=== PATIENT | female | born 1995 | race Caucasian/White ===

== ENCOUNTER 2017-05-16 00:14 | Emergency (ER) | payer SELFPAY ==
[2017-05-16 00:57] LABS: Hematocrit 42.1 % (36.0-47.0); Mean Platelet Volume 6.3 fL (7.4-10.4); Neutrophil 39 % (42-75); Red Blood Cell (RBC) Count 4.33 mill/uL (4.20-5.40); White Blood Cell (WBC) Count 7.3 thou/uL (4.8-10.8)
[2017-05-16 01:01] LABS: ALT (SGPT) 14 U/L (8-55); AST (SGOT) 33 U/L (5-34); Acetaminophen Less than 6.0 mcg/mL (10.0-30.0); Alkaline Phosphatase 55 U/L (40-150); Anion Gap 17 mmol/L (10-20); BUN (Urea Nitrogen) 9 mg/dL (7.0-18.7); Bilirubin, Total 0.3 mg/dL (0.2-1.2); Calc. Creatinine Clearance 0 mL/min (70-130); Calcium 9.2 mg/dL (7.8-10.44); Carbon Dioxide 19 mmol/L (22-29); Chloride 104 mmol/L (98-107); Estimated GFR-MDRD 68; Globulin 3.3 g/dL (2.4-3.5); Protein, Total 7.7 g/dL (6.0-8.3); Salicylate Less than 8.0 mg/dL (15.0-30.0)
[2017-05-16 01:02] LABS: Bilirubin Negative (Negative); Blood, Urine Negative (Negative); Glucose, Urine (Dipstick) Negative (Negative); Ketone, Urine Negative (Negative); Nitrite Negative (Negative); Protein, Urine (Dipstick) Trace mg/dL (Neg-Trace); Urobilinogen 0.2 mg/dL (0.2-1.0)
[2017-05-16 01:10] LABS: Amphetamine Not Detected (NotDetected); Methadone Not Detected (NotDetected); Methamphetamine Not Detected (NotDetected)
--- NOTE | 2017-05-16 09:14 | RAD ---
CHEST 1 VIEW: HISTORY: Altered mental status. FINDINGS: No comparison. Cardiac silhouette is magnified by projection. Pulmonary vasculature is unremarkabl e. Mediastinum is midline. No lobar consolidation or pneumothorax are apparent. There is gaseous distention of the partially visualized stomach. IMPRESSION: No active cardiopulmonary abnormalities are demonstrated. POS: [facility]
== END 2017-05-16 04:30 | disposition home or self-care (01) ==
LOC: ERS 00:14
DX: F10.129 Alcohol abuse with intoxication, unspecified (principal)
CPT/HCPCS: 51702; 71010; 80053; 80306; 80307; 81003; 81025; 84443; 85025; 93005; 94760

== ENCOUNTER 2019-04-17 07:23 | Outpatient (CLI) | payer MEDICAID ==
--- NOTE | 2019-04-17 07:58 | ULT ---
Exam: Pelvic ultrasound HISTORY: Right lower quadrant and pelvic pain. COMPARISON: None TECHNIQUE: Multiple grayscale and color Doppler images were obtained in a transabdominal pelvic ultra sound. Spectral analysis of the Doppler waveforms of the ovaries were performed. FINDINGS: CERVIX: Grossly normal in appearance where visualized. UTERUS: Normal in size without focal abnormality. ENDOMETRIAL STRIPE: 6 mm which is within normal limits for a normal menstruating female patient. No f luid or fluid collection is seen in the endometrial canal. No free fluid is present. RIGHT OVARY: A 2.1 cm anechoic structure is seen in the right ovary most compatible with a cyst. Ivonne rial flow is documented in the right ovary. LEFT OVARY: Normal flow, without focal mass. IMPRESSION: Small right ovarian cyst.
== END 2019-04-17 07:24 | disposition home or self-care (01) ==
LOC: BICULT 07:23
DX: R10.2 Pelvic and perineal pain (principal); N83.201 Unspecified ovarian cyst, right side
CPT/HCPCS: 76856; 93976